=== PATIENT | female | born 1980 | race Caucasian/White ===

== ENCOUNTER 2016-07-08 18:49 | Emergency (ER) | payer BC ==
[~2016-07-08 18:49] MED LIST: ACID REDUCER20 MG; ALBUTEROL MININEB NEB; BENADRYL25 M1 PO; BENTYL20 MG PO; BIRTH CONTROL PILL; BIRTH CONTROL PILL PO; BUSPAR PO; CELEXA; CELEXA PO; CELEXA20 MG PO; CIPRO PO; CLARITIN D PO; CLEOCIN HCL300 M1 PO; CYMBALTA PO; DEPO-PROVER150 MG/ML INJ; FAMOTIDINE PO; FLEXERIL10 MG PO; IBUPROFEN PO; LOESTRIN1 TA1 PO; METFORMIN PO; MUCINEX DM1 TAB.SR . PO; MULTI VITAMIN1 EACH; MULTI-VITAMIN1 EAC1 PO; NEXIUM PO; PAXIL30 MG PO; PAXIL40 MG PO; PREDNISONE PO; PREDNISONE50 MG PO; PREVACID 24HR15 MG PO; PREVACID15 MG PO; PRILOSEC20 M1 PO; PRINCIPEN250 MG PO; PROZAC PO; ULTRAM PO; VITAMIN D50000 UNIT PO; VOLTAREN75 MG PO; WELLBUTRIN PO; ZEGERID40 MG/PKT PO; ZITHROMAX PO; ZOFRAN PO; ZYRTEC; ZYRTEC10 M2 PO; [UNRECOGNIZED DRUG - OTHER]
== END 2016-07-08 20:20 | disposition home or self-care (01) ==
LOC: SED 18:49
DX: M43.6 Torticollis (principal); J45.909 Unspecified asthma, uncomplicated; Z88.2 Allergy status to sulfonamides; Z88.7 Allergy status to serum and vaccine; Z88.8 Allergy status to other drugs, medicaments and biological substances; Z79.899 Other long term (current) drug therapy
CPT/HCPCS: 96372; 99283; J1885

== ENCOUNTER 2016-09-06 12:10 | Emergency (ER) | payer BC ==
--- NOTE | ~2016-09-06 | CR63 ---
[facility] A Service of [facility] RADIOLOGY TEXT RESULTS PATIENT: DENZEL COATS LOCATION: CFTX : 76 UNIT #: [id number] AGE: [address]: VANESSA DAVIS SEX: F ORDER DR: [id number] [facility] [address] [place], [place] [address] [id number] E MR#: [id number] Acc #: [id number] NAME: DENZEL COATS. : 1980 SEX: F STUDY DATE/TIME: 09/06/2016 12:48 UNIT: [facility] ROOM: STUDY DESCRIPTION: CR Chest 2 View Attending Physician: aVnessa Davis A.P.R.N. Ordering Physician: Vanessa Davis A.P.R.N. Primary Care Physician: Ambar Live A.P.R.N. MEDICAL IMAGING REPORT This report is preliminary unless electronic signature is present EXAM Chest 2 views dated 09/06/2016. COMPARISON Chest 2 views dated 03/08/2015. HISTORY Right-sided anterior rib pain under the breasts for 4 days. Status post Chiropractor adjustment. History of asthma and shortness of air with pain. FINDINGS 2 views of the chest were obtained. No acute cardiopulmonary disease. Lungs are well-aerated. Heart and mediastinum are of normal size. Minimal endplate osteophytes are noted in the thoracic spine. The rest of the visualized bones are grossly intact in these given images. Dictated by... Vaughn Sol M.D. THIS IS AN ELECTRONICALLY VERIFIED REPORT Vaughn Sol M.D. at 09/08/2016 8:32 PM CPR/pcl TD: 09/06/2016 14:34 JOB #: [id number] MEDICAL IMAGING REPORT Page 1 of 1 COPY
--- NOTE | ~2016-09-06 | EKG ---
PATIENT: DENZEL COATS UNIT #: [id number] Ventricular Rate: 89 BPM Atrial Rate: 89 BPM P-R Interval: 156 ms QRS Duration: 76 ms Q-T Interval: 374 ms QTC Calculation(Bezet): 455 ms P Lewis: 26 degrees Calculated R Lewis: 23 degrees Calculated T Lewis: 30 degrees Diagnosis Line: Normal sinus rhythm Diagnosis Line: Normal ECG Diagnosis Line: When compared with ECG of 08-JUL-2012 10:04, Diagnosis Line: No significant change was found Diagnosis Line: Confirmed by YANIV AHUMADA MD ([id number]) on Diagnosis Line: 09/07/2016 11:08:05 AM INTERPRETING MD: GARRET
== END 2016-09-06 14:55 | disposition home or self-care (01) ==
LOC: CFTX 12:10 → CED 12:10 → CFTX 13:44
DX: R07.89 Other chest pain (principal)
CPT/HCPCS: 71020; 93005; 96372; 99285; J1885